=== PATIENT | male | born 1955 | race Caucasian/White ===

== ENCOUNTER 2016-09-16 11:32 | Emergency (ER) | payer MEDICARE ==
[~2016-09-16 11:32] MED LIST: ASA325 MG PO; BUPROPION HCL150 M1 PO; CARDIZEM CD DP120 MG PO; COZAAR100 MG PO; FINASTERIDE1 MG PO; FLOMAX DPS0.4 MG PO; HCTZ12.5 MG PO; HYDROCODONE 10M10 MG PO; TYLENOL DPS325 MG PO; [UNRECOGNIZED DRUG - OTHER] PO
--- NOTE | 2016-09-21 10:36 | ER ---
ADMIT: 09/16/2016 RM/LOC: ER [facility] MR#: [id number] [address] [id number] [place] [address] [place] [address] Emergency Room Report SEX: M AGE: 61 : 1955 DATE: 09/16/2016 Please see my T-sheet for complete review of systems, past medical history, and physical exam. CHIEF COMPLAINT: Right flank pain. HISTORY OF PRESENT ILLNESS: This is a pleasant 61-year-old male who presents to the ER after acute onset of right flank pain while walking through the aisles [facility]. The patient states he did fall off a trailer yesterday while he was working on it, did not really think anything of it. He was able to continue with his work. Today complains of severe right flank pain, primarily over the right. States it radiates into his groin. Admits to some nausea. PAST MEDICAL HISTORY: Significant for atrial fibrillation, CAD, TX, hypertension, BPH, and hyperlipidemia. COURSE IN THE EMERGENCY ROOM: The patient was seen and examined. He does have some tenderness to palpation over the right flank. I did get a urine on him. Findings consistent with a urinary tract infection. Did proceed to CT renal colic, negative for any stones. He was given 15 of Toradol as well as 4 Zofran while in the department tonight. IMPRESSION: 1. Right flank pain. 2. Urinary tract infection. DISPOSITION: Patient was discharged on Cipro 500 mg p.o. b.i.d. for 7 days. He is to apply ice or heat to the right flank, Tylenol or Motrin as needed for pain. Return home and rest. Continue all of his home medications. Activity as tolerated. Follow up with Dr. Bennett with any worsening signs or symptoms. Questions sought and answered to the best of my ability and to the patient's satisfaction. The patient was discharged in stable condition. JG Nicholas / Jose Daniel Jarvis MD / efraín JOB #: [id number] CC: Jose Daniel Jarvis MD, Attending Physician Prasanth Bennett MD, Family Physician
== END 2016-09-16 14:00 | disposition home or self-care (01) ==
LOC: ER 11:32
DX: N39.0 Urinary tract infection, site not specified (principal); I48.91 Unspecified atrial fibrillation; I25.2 Old myocardial infarction; I10 Essential (primary) hypertension; E78.5 Hyperlipidemia, unspecified; F17.210 Nicotine dependence, cigarettes, uncomplicated; Z88.8 Allergy status to other drugs, medicaments and biological substances